=== PATIENT | male | born 1960 | race Caucasian/White ===

== ENCOUNTER → 2016-10-21 | Outpatient (CLI) | payer BC ==
[~2016-10-21] MED LIST: ALEVE220 M1 PO; ANAFRANIL50 MG PO; ARTHRO 7 PO; BAYER ASPIRIN325 M1 PO; CEFDINIR300 M2 PO; CENTRUM SILVER PO; CLOMIPRAMINE HC75 MG PO; DEPLIN-ALGAL O1 EAC1 PO; DURAFLU 325-201 EACH PO; FIBER GUMMIES1 EACH PO; FIBER625 M2 PO; FLOMAX0.4 M1 PO; FLONASE 0.05% N16 G1; KLONOPIN0.5 M3 PO; KLONOPIN0.5 MG PO; KLONOPIN1 M1 PO; MIRTAZAPINE45 M1 PO; NAPHCON-A EYE D15 M1 OU; NAPROXEN PO; PROBIOTIC1 EAC1 PO; PROBIOTIC1 EACH PO; REMERON45 M1 PO; ROXICODONE5 MG PO; VANCOMYCIN1.5 GM/251 IV; VITAMIN D2000 UNIT PO; VITAMIN D32000 UNI1 PO; [UNRECOGNIZED DRUG - CODE] IV; [UNRECOGNIZED DRUG - OTHER] OU; [UNRECOGNIZED DRUG - OTHER] PO
[2016-10-21 15:26] LABS: URINE APPEARANCE CLEAR; URINE BILIRUBIN NEG (NEG); URINE BLOOD NEG (NEG); URINE COLOR YELLOW; URINE GLUCOSE NEG (NEG); URINE KETONE NEG (NEG); URINE LEUKOCYTE ESTERASE NEG (NEG); URINE NITRATE NEG (NEG); URINE PROTEIN NEG (NEG); URINE UROBILINOGEN 0.2 MG/DL (NEG)
[2016-10-21 15:28] LABS: URINE SOURCE CLEAN CATCH
[2016-10-21 15:40] LABS: HEMATOCRIT 48.3 % (38.0-50.0); HEMOGLOBIN 15.9 gm/dL (13.0-16.0); MEAN CELL VOLUME 86.9 FL (83-96); MEAN CORPUSCULAR HEMOGLOBIN 28.6 PG (28-34); MEAN CORPUSCULAR HGB CONC 32.9 g/dL (30-36); MEAN PLATELET VOLUME 9.3 FL (6.5-11.5); RED BLOOD COUNT 5.56 X10e (3.90-5.60); RED CELL DISTRIBUTION WIDTH 13.6 % (11.0-15.5); WHITE BLOOD COUNT 8.6 X10e3 (4.0-10.5)
[2016-10-21 16:12] LABS: BLOOD UREA NITROGEN 24 mg/dL (9-23); BUN/CREATININE RATIO 21.81; CALCIUM SERUM 9.2 mg/dL (8.4-10.2); CARBON DIOXIDE 31 mmol/L (22-31); CHLORIDE 104 mmol/L (100-111); CREATININE SERUM 1.1 mg/dL (0.6-1.4); GLOM FILT RATE Estimated ABOVE60 mL/min (>60); GLUCOSE FASTING 67 mg/dL (70-110); SODIUM 141 mmol/L (135-145)
[2016-10-21 16:29] LABS: CULTURE INDICATED? NO
== END | disposition home or self-care (01) ==
LOC: CAMB 14:48
PROVIDERS: Orthopaedic Surgery
DX: Z01.812 Encounter for preprocedural laboratory examination (principal); T84.59XA Infection and inflammatory reaction due to other internal joint prosthesis, initial encounter; Z96.612 Presence of left artificial shoulder joint
CPT/HCPCS: 36415; 80048; 81003; 85027; 85652; 86140; 87070

== ENCOUNTER 2016-10-27 10:03 | Inpatient (IN) | payer BC ==
--- NOTE | ~2016-10-27 | OR ---
Unit #: [id number] #: [id number] Patient: CONSUELO MCKOY [id number] [address] [place], [place] [address] [id number] I MR#: [id number] NAME: CONSUELO MCKOY ROOM: 456 Date of Procedure: 10/27/2016 Admission Date: 10/27/2016 Surgeon: Cuauhtemoc Patiño M.D. : 1960 Attending Physician: Cuauhtemoc Patiño M.D. Primary Care Physician: Umesh Ba M.D. PROCEDURE OPERATIVE NOTE ADDENDUM ADDENDUM This addendum is to clarify the nature of the humerus fracture encountered intraoperatively during Mr. Mckoy's case. This is not considered a true surgical complication but was only listed as such to identify that the event occurred. This is a typical and incidental occurrence that happens routinely during orthopedic hardware removal, particularly humeral stem extraction. The stem which was to be removed was a fluted highly porous-coated stem of an older design which has been since altered as it contributes to intraoperative fracture during explantation. The bone was further structurally compromised due to the known infection and osteolysis around the implant. This further contributed to the fracture of the posterior rim of the humerus. This was repaired and addressed at the conclusion of the surgery while fixing the humeral osteotomy. This does not in any way alter Mr. Mckoy's expected outcome for future revision operation. Dictated by... Junie Hercules/nahun TD: 11/04/2016 15:05 JOB #: [id number] PROCEDURE OPERATIVE NOTE Page 1 of 1 X Cuauhtemoc Patiño MD X PROCEDURE OPERATIVE NOTE
--- NOTE | ~2016-10-27 | OR ---
Unit #: [id number] #: [id number] Patient: CONSUELO MCKOY [id number] [address] [place], [place] [address] [id number] I MR#: [id number] NAME: CONSUELO MCKOY ROOM: [facility] Date of Procedure: 10/27/2016 Admission Date: 10/27/2016 Surgeon: Cuauhtemoc Patiño M.D. : 1960 Attending Physician: Cuauhtemoc Patiño M.D. Primary Care Physician: Umesh Ba M.D. OPERATIVE REPORT PREOPERATIVE DIAGNOSIS Infected left total shoulder arthroplasty. POSTOPERATIVE DIAGNOSES 1. Infected left total shoulder arthroplasty. 2. Long head of the biceps tendon tear, status post prior tenodesis. 3. Intraoperative proximal humerus fracture following humeral osteotomy for stem removal. PROCEDURES PERFORMED 1. Removal of left total shoulder arthroplasty including both glenoid and humeral components. 2. Revision open biceps tenodesis. 3. Open reduction and internal fixation of intraoperative humerus fracture. 4. Placement of an antibiotic spacer. IMPLANTS 1. Synthes 1.0 mm cable x4. 2. Estrada [employer] antibiotic spacer, size 8. [employer] OPERATOR Rosey Dang APRN, [place]. ANESTHESIA General with interscalene nerve block. ESTIMATED BLOOD LOSS 150 mL. COMPLICATIONS Intraoperative fracture of the proximal humerus following humeral osteotomy for stem extraction, repaired with cerclage cables. SPECIMENS 1. Multiple cultures to microbiology including the humeral implant and canal as well as the glenohumeral joint capsule and cultures from the glenoid component and glenoid itself. 2. Multiple specimens to microbiology from the same above sources. INDICATIONS FOR PROCEDURE Mr. Mckoy is a 56-year-old gentleman with a painful left total shoulder Unit #: [id number] #: [id number] Patient: CONSUELO MCKOY arthroplasty. Diagnostic imaging workup for loosening and infection was negative. However, he continued to have a painful shoulder. He ultimately was referred to our office for further evaluation. Workup with laboratory studies was normal as was a three-phase bone scan. However, shoulder aspiration yielded cloudy fluid, which ultimately grew out Propionibacterium acnes. We discussed the nature of occult or indolent shoulder infections and recommended component removal. He voiced agreement and understanding and elected to proceed. We discussed the risks of explanting these components as well as the plan for future reimplantation including risks of persistent infection, particularly with this organism. DESCRIPTION OF PROCEDURE The patient was identified in the preoperative holding area. The operative site was marked. A regional anesthetic block was performed. Preoperative antibiotics were held pending intraoperative culture, though the patient had been on antibiotics recently for other illness. The patient was brought to the operating room and placed supine on the operating table. A general anesthetic was induced. The patient was positioned in the beach-chair position. The left upper extremity was prepped and draped in sterile fashion. The previous incision was identified and marked out over the skin. The incision was reopened and extended this slightly proximally and distally. Dissection was carried down to the subcutaneous tissues to the deltopectoral interval. There was no visible cephalic vein. The plane between the deltoid and pectoralis was able to be identified and the proximal extent of the wound. We were then able to dissect through this along the [place] soft tissue planes as there was surprisingly minimal scarring in the interval. The pectoralis, however, was firmly scarred to the underlying conjoined tendon. This was dissected free. The deltoid was mobilized and was significantly scarred and adhesed down to the humerus itself. The subscapularis was dissected free from the underlying conjoined tendon as well. The subscapularis was intact. The biceps tendon sheath was then opened up along the bicipital groove and up through the rotator interval tissue. The subscapularis was taken down directly off bone. The previous biceps tenodesis was identified. The biceps torn or become loose from its point of tenodesis previously. This was clamped with an Allis clamp. It was noted to becoming loose from its previous tenodesis site. The biceps was tagged with a running locking #2 FiberWire for later revision tenodesis. The subscapularis was taken down. It should be noted, prior to formally opened in the glenohumeral joint, a repeat aspiration was performed directly through the subscap and rotator interval tissues. This yielded approximately 3 mL of cloudy fluid, which was sent for cell count and culture. We then continued releasing soft tissue anteriorly and dislocated the humerus. There was significant amount of membrane formation around the humerus. The humeral head was removed as well as the neck adaptor. There was purulent appearing type debris in the trunnion of the stem. There was also some bone loss around the periphery of the stem. The stem itself however was well fixed. Attention was then turned to stem removal. The extractor device was attached and several attempts made to backslap the stem, which were unsuccessful. We then used a combination of osteotomes and burs to free around the proximal lateral shoulder of the implant. Flexible osteotomes Unit #: [id number] #: [id number] Patient: CONSUELO MCKOY were passed down the shaft of the humerus as well. We then again attempted to extract the stem unsuccessfully. Another attempt was then made to free the stem using again flexible osteotomes and a bur proximally. Despite this, the stem remained well fixed. We therefore proceeded to humeral osteotomy, which was performed along the lateral aspect of the bicipital groove. This permitted the saw blade to access along the posterior or lateral shoulder of the implant and then down the lateral aspect of the stem. Once we performed the osteotomy, the stem then extracted freely without need for creation of a formal window. However, once we had the stem extracted with rotation of the arm, the proximal humerus rim fractured. This essentially fractured off the greater tuberosity around the posterior cortex. This all was one large fragment. The osteotomy was then stabilized with 2 cerclage cables. A wire passer was passed carefully around the humerus, taking care to stay directly on bone to avoid any incorporation of soft tissue between the cable and the humerus. The inferior two cables were passed and then provisionally tensioned and secured, but not crimped. Attention was then turned to fixation of the intraoperative fracture of the humerus. This was reduced with a pointed tenaculum clamp. Two K-wires were placed from anterior to posterior to stabilize the fragment. We then passed 2 more cerclage cables around the proximal humerus for fixation of the fractured fragment. A small broach was then placed in the humeral canal, protected this with a head protector as well as attention was turned to the glenoid. The humerus was subluxed posteriorly and the glenoid inspected. The glenoid was noted to actually be loose. With even gentle digital pressure on the inferior and superior aspects of the glenoid, this was freely rocking back and forth. There was widening around the glenoid rim to the degree that an additional retractor was actually placed on the glenoid neck, but actually posterior to the glenoid implant itself. Once we identified the bony rim surrounding the implant, retractors were placed on the true anterior glenoid neck. The glenoid component was dissected free of essentially fibrous attachments. Soft tissue was taken from the backside of the implant as well as what had been taken from the glenohumeral joint capsule for specimen. This was sent to microbiology and pathology. The glenoid itself was then thoroughly debrided of any infectious appearing debris and soft tissue. It should be noted that the humeral canal was curetted in a similar fashion. The canal itself did not have any significant membrane formation and did not appear to be involved in the infectious process. The wound was irrigated with Betadine solution followed by a chlorhexidine wash and pulsatile lavage. Single K-wire was removed for temporizing fixation of the greater tuberosity. This was somewhat obstructing the canal. The broach, which was in, was removed and the canal sized to a size 8. Therefore, a size 8 cement spacer was created. Once this was secured, this was placed in the canal and our cables were then finally tensioned, crimped and cut. Another batch of cement was then mixed. A small rim of cement was placed around the undersurface of the humeral head. The stem was then placed back into the canal just as the cement was being cured to facilitate easy stem removal in the future. The stem itself was not cemented in the canal. The humerus was then reduced and a final irrigation performed. A subdeltoid drain was placed. The wound was then closed in a layered fashion with 0 PDS, 2-0 PDS, and Monocryl. Steri-Strips and sterile dressings were applied. DISPOSITION Unit #: [id number] #: [id number] Patient: CONSUELO MCKOY Stable to the recovery room. Dictated by... Junie Hercules/tian TD: 10/30/2016 03:46 JOB #: [id number] OPERATIVE REPORT Page 1 of 1 X Cuauhtemoc Patiño MD PROCEDURE OPERATIVE NOTE
--- NOTE | ~2016-10-27 | XA166 ---
[facility] A Service of [facility] RADIOLOGY TEXT RESULTS PATIENT: CONSUELO MCKOY LOCATION: [facility] 456-01 : [birth year] UNIT #: [id number] AGE: [address]: Cuauhtemoc Patiño MD SEX: M ORDER DR: [id number] [facility] [address] [place], [place] [address] [id number] I MR#: [id number] Acc #: [id number] NAME: CONSUELO MCKOY : 1960 SEX: M STUDY DATE/TIME: 10/29/2016 12:12 UNIT: [facility] ROOM: [facility] STUDY DESCRIPTION: XA PICC Line Placement WO Port Attending Physician: Cuauhtemoc Patiño M.D. Ordering Physician: Deandre Camara M.D. Primary Care Physician: Umesh Ba M.D. MEDICAL IMAGING REPORT This report is preliminary unless electronic signature is present EXAM Right-sided PICC line placement without port. DATE OF EXAM 10/29/2016 INDICATION Need for IV access in a patient status post left shoulder arthroplasty revision. PRE-PROCEDURE The procedure was explained to the patient and/or patient branch sales and service representative including risks, benefits, potential complications and potential for alternative forms of treatment. Informed consent was obtained, and prior to initiating the procedure a formal timeout procedure was performed. PROCEDURE Using full standard sterile barrier technique, including caps, gowns, gloves, masks, as well as sterile skin preparation and standard sterile draping, the right-side arm was prepped and draped in the usual fashion, and real-time sterile ultrasound guidance was used to localize an arm vein and to confirm vessel patency. A hard copy ultrasound image was recorded. After local anesthesia with 1% Xylocaine, the vein was punctured using real-time sterile ultrasound guidance, and an 0.018 guidewire was advanced into the superior vena cava, using fluoroscopic guidance. A 4-Namibian single-lumen PICC was then measured and deployed with the tip positioned in the superior vena cava. The position of the line was documented with a radiographic image. The line was secured in place with an adhesive dressing and an antibiotic patch was applied. Total fluoro time was 0.1 minutes. AK was 1 mGy. IMPRESSION [facility]. [facility] A Service of [facility] RADIOLOGY TEXT RESULTS PATIENT: CONSUELO MCKOY LOCATION: [facility] 456-01 : [birth year] UNIT #: [id number] AGE: [address]: Cuauhtemoc Patiño MD SEX: M ORDER DR: Successful placement of a 4-Namibian single lumen PowerPICC via the right arm under ultrasound and fluoroscopic guidance. The tip of the PICC is in good position in the superior vena cava. A single fluoroscopic spot image was obtained. Dictated by... Latosha Arora M.D. THIS IS AN ELECTRONICALLY VERIFIED REPORT Latosha Arora M.D. at 11/01/2016 4:46 PM RUPESH/amber TD: 10/29/2016 22:42 JOB #: [id number] MEDICAL IMAGING REPORT Page 1 of 1 COPY
--- NOTE | ~2016-10-27 | CR63 ---
[facility] A Service of [facility] & [facility] RADIOLOGY TEXT RESULTS PATIENT: CONSUELO MCKOY LOCATION: [facility] : 62 UNIT #: [id number] AGE: [address]: Cuauhtemoc Patiño MD SEX: M ORDER DR: [id number] [facility] [address] [place], [place] [address] [id number] MR#: [id number] Acc #: [id number] NAME: CONSUELO MCKOY : 1960 SEX: M STUDY DATE/TIME: 10/21/2016 16:41 UNIT: [facility] ROOM: STUDY DESCRIPTION: CR Chest 2 View Attending Physician: Cuauhtemoc Patiño M.D. Ordering Physician: Cuauhtemoc Patiño M.D. Primary Care Physician: Umesh Ba M.D. MEDICAL IMAGING REPORT This report is preliminary unless electronic signature is present EXAM PA and lateral chest HISTORY Preop left shoulder replacement. Shoulder infected. Symptoms beginning April 2013. FINDINGS PA and lateral views are obtained. The cardiovascular configuration is normal and the lungs are clear. CONCLUSION No active disease. Dictated by... Molina Chen M.D. THIS IS AN ELECTRONICALLY VERIFIED REPORT Molina Chen M.D. at 10/25/2016 5:10 PM Dick TD: 10/22/2016 07:41 JOB #: [id number] MEDICAL IMAGING REPORT Page 1 of 1 COPY
--- NOTE | ~2016-10-27 | CO ---
Unit #: [id number] #: [id number] Patient: CONSUELO MCKOY [id number] [address] [place], [place] [address] [id number] MR#: [id number] NAME: CONSUELO MCKOY ROOM: 456 Age: 56 Sex: M Admission Date: 10/27/2016 : 1960 Attending Physician: Cuauhtemoc Patiño M.D. Primary Care Physician: Umesh Ba M.D. Consultation Date: 10/28/2016 CONSULTATION REPORT REASON FOR CONSULTATION Infected left shoulder. HISTORY OF PRESENT ILLNESS This is a very pleasant 56-year-old white male with a history of osteoarthrosis, status post left shoulder arthroplasty back in 04/2013 who had chronic pain in left shoulder for several months and has been seeing a physical therapy without any improvement, to the best of his knowledge no arthrocentesis was performed until he saw Dr. Patiño on 09/13, joint aspiration at that time grew Propionibacterium acnes. The patient was brought in yesterday for arthroplasty resection, which he underwent successfully followed by spacer placement, all the OR cultures are pending. He was started on penicillin and vancomycin and ID was consulted for further evaluation. The patient is currently stable other than postoperative pain he has no other symptoms. He told me that he continued to have low-grade pain in that shoulder since arthroplasty. He never had any swollen, painful, red shoulder with fever and chills. He is tolerating current antibiotics well and does not have any other symptoms at this time, especially there is no fever or chills, etc. PAST MEDICAL HISTORY Anxiety, depression, osteoarthrosis, and overactive bladder. PAST SURGICAL HISTORY Left shoulder replacement. CURRENT MEDICATIONS Vancomycin, enalapril, Remeron, Klonopin, Senokot, morphine, oxycodone, milk of magnesia, bisacodyl, Tylenol, Phenergan, penicillin, Zofran, and Flomax. ALLERGIES None. PERSONAL HISTORY He denies any alcohol, drug, or tobacco abuse. FAMILY HISTORY Positive for osteoarthrosis. SYSTEMIC REVIEW Postoperative pain in the left shoulder. No fever or chills. There is no cough, sputum production, abdominal pain, nausea, vomiting, diarrhea, dysuria, frequency, urgency, hematuria, etc. Unit #: [id number] #: [id number] Patient: CONSUELO MCKOY PHYSICAL EXAMINATION GENERAL: Reveals a young white male, who is awake and alert, in no acute distress. He is fully conscious, oriented to time, place, and person. VITAL SIGNS: Temperature 97.6, no fever was documented during this admission; heart rate is 90; respirations 20; blood pressure 130/80. HEENT: Unremarkable. NECK: Supple. There is no JVD or edema. LUNGS: Clear. HEART: Sounds normal. ABDOMEN: Soft and nontender. NEUROLOGIC: Nonfocal. Left shoulder is in dressing. Wound was not examined. DIAGNOSTIC STUDIES LABORATORY RESULTS: BMP is unremarkable. White count is 10.6, hemoglobin 13.2, platelets 136, neutrophils 76, lymphocytes 13. Cell count in the synovial fluid shows 6195 WBCs, 77% neutrophils. MRSA screen was negative. Urinalysis negative. CRP less than 0.5. Cultures of the shoulder aspirated on 09/23 have grown Propionibacterium acnes from the broth. OR cultures from yesterday, all negative so far and gram stain is negative as well. IMAGING STUDIES: Left shoulder x-ray shows postoperative changes. Revision of left shoulder arthroplasty. Chest x-ray is negative for acute disease. 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 This infection is usually indolent and joint removal is usually indicated. RECOMMENDATIONS At this time, I will agree with penicillin, however, I will increase the dose to 18 million units over 24 hours. We will also agree with vancomycin until other organisms are excluded. I will recommend at least 6 to 8 weeks of IV antibiotics therapy via PICC line and home health. Side effects of antibiotics as well as of the PICC line were discussed with the patient in detail. Other options were discussed. Thank you Dr. Patiño for asking us to see Mr. Mckoy. We will follow along with you and give final recommendations on the day of discharge. Once cultures are finalized, I will ask Microbiology to keep cultures for at least 5 days. Dictated by... Junie Gary/tian TD: 10/29/2016 01:48 JOB #: [id number] Unit #: [id number] #: [id number] Patient: CONSUELO MCKOY CONSULTATION REPORT Page 1 of 1 X Deandre Camara MD CONSULTATION REPORT
--- NOTE | ~2016-10-27 | CR229 ---
[facility] A Service of [facility] & [facility] RADIOLOGY TEXT RESULTS PATIENT: CONSUELO MCKOY LOCATION: [facility] 456-01 : [birth year] UNIT #: [id number] AGE: [address]: Cuauhtemoc Patiño MD SEX: M ORDER DR: [id number] [facility] [address] [place], [place] [address] [id number] I MR#: [id number] Acc #: [id number] NAME: CONSUELO MCKOY : 1960 SEX: M STUDY DATE/TIME: 10/27/2016 19:27 UNIT: [facility] ROOM: [facility] STUDY DESCRIPTION: CR Shoulder Min 2 View Lt Attending Physician: Cuauhtemoc Patiño M.D. Ordering Physician: Cuauhtemoc Patiño M.D. Primary Care Physician: Umesh Ba M.D. MEDICAL IMAGING REPORT This report is preliminary unless electronic signature is present EXAM Left shoulder 2 views, 10/27/2016 HISTORY SUPPLIED Postop left shoulder. FINDINGS 2 views are submitted. There are postsurgical changes in the left shoulder joint with cerclage wires. The patient apparently has had removal of a prosthesis and there is a drain laterally. CONCLUSION Postop changes, presumed revision of the left shoulder arthroplasty. Dictated by... Molina Chen M.D. THIS IS AN ELECTRONICALLY VERIFIED REPORT Molina Chen M.D. at 10/28/2016 10:35 AM AUGUSTIN/jagjit TD: 10/28/2016 05:12 JOB #: [id number] MEDICAL IMAGING REPORT Page 1 of 1 COPY
--- NOTE | ~2016-10-27 | DS ---
Unit #: [id number] #: [id number] Patient: CONSUELO MCKOY [id number] [address] [place], [place] [address] [id number] MR#: [id number] NAME: CONSUELO MCKOY ROOM: 456 Age: 56 Sex: M Admission Date: 10/27/2016 : 1960 Discharge Date: 10/30/2016 Attending Physician: Cuauhtemoc Patiño M.D. Primary Care Physician: Umesh Ba M.D. DISCHARGE SUMMARY ADMISSION DIAGNOSIS Infected left total shoulder arthroplasty. DISCHARGE DIAGNOSIS Infected left total shoulder arthroplasty. SECONDARY DIAGNOSES 1. Benign prostatic hypertrophy. 2. Depressive disorder. 3. Anxiety disorder. 4. Vitamin D deficiency. PROCEDURE DURING THIS HOSPITALIZATION Explantation of infected left total shoulder arthroplasty and placement of antibiotic impregnated spacer. CONSULTANTS Dr. Camara and Dr. Barraza with Infectious Disease. Plan for discharge on both IV vancomycin and penicillin. BRIEF HISTORY Mr. Mckoy is a 56-year-old gentleman with a history of a painful left total shoulder arthroplasty for the past several years. An office aspiration yielded appropriate propionibacterium acnes. He now presents for explantation of his components and placement of spacer. HOSPITAL COURSE The patient was taken to the operating room on the day of admission, on 10/27/2016. The patient was taken the operating room on the day of admission on 10/27/2016. For full details, please see dictated operative note. He briefly underwent explantation of his components from the left total shoulder arthroplasty. The antibiotic spacer was placed. He tolerated surgery well. He is admitted to the orthopedic surgery floor postoperatively. He has been continued on IV vancomycin and penicillin G for coverage of P acnes. Infectious Disease was consulted and continued with these recommendations. The patient's postoperative course has been unremarkable. He has been up and ambulatory in his room. Postoperative wound care has been uncomplicated. No drainage or erythema at the surgical site. He has been participating with physical therapy. He is tolerating a regular diet; however, is not yet had a bowel movement. At the current time, his wound is clean and dry. His hemoglobin has been Unit #: [id number] #: [id number] Patient: MCKOY,CONSUELO stable at 10.4. Antibiotics at disposition has been finalized and he is medically stable for discharge home. Intraoperative cultures remain negative to date. DISCHARGE INSTRUCTIONS The patient should be nonweightbearing on the affected extremity. He is to be in a sling. He may be out of this 3 times daily for range of motion exercises as directed. DISCHARGE MEDICATIONS Flomax 0.4 mg p.o. daily, Flonase nasal spray daily, clomipramine 100 mg p.o. q.h.s., mirtazapine 45 mg p.o. q.h.s., probiotic capsule daily, Klonopin 0.5 mg p.o. b.i.d., multivitamin daily, vitamin D 2000 units p.o. daily, vancomycin 1500 mg IV q.12 hours x6 weeks, penicillin G three million units IV q.4 x6 weeks. FOLLOWUP He will follow up in 2 weeks' time as scheduled for routine postoperative visit. Dictated by... Junie Hercules/tian TD: 10/30/2016 22:21 JOB #: [id number] DISCHARGE SUMMARY Page 1 of 1 X Cuauhtemoc Patiño MD DISCHARGE SUMMARY
[~2016-10-27 10:03] MED LIST changes: -ALEVE220 M1 PO; -CLOMIPRAMINE HC75 MG PO; -FIBER625 M2 PO; -KLONOPIN0.5 M3 PO; -KLONOPIN1 M1 PO; -PROBIOTIC1 EACH PO; -REMERON45 M1 PO; -ROXICODONE5 MG PO; -VANCOMYCIN1.5 GM/251 IV; -VITAMIN D32000 UNI1 PO; -[UNRECOGNIZED DRUG - CODE] IV; -[UNRECOGNIZED DRUG - OTHER] OU; -[UNRECOGNIZED DRUG - OTHER] PO
[2016-10-27 19:01] LABS: BF TOTAL NUCLEATED CELL COUNT 6195 CMM (0-100); BODY FLUID APPEARANCE BLOODY; BODY FLUID RBC 39914 CMM; BODY FLUID SOURCE SYNOVIAL
[2016-10-28 12:03] LABS: BASOPHIL# 0.1 X10e3 (0-0.3); BASOPHIL% 0.8 % (0-2.5); EOSINOPHIL% 0.4 % (0.0-7.0); HEMATOCRIT 40.8 % (38.0-50.0); HEMOGLOBIN 13.2 gm/dL (13.0-16.0); LYMPHOCYTE# 1.4 X10e3 (1.0-3.5); LYMPHOCYTE% 13.7 % (17.0-45.0); MEAN CELL VOLUME 87.8 FL (83-96); MEAN CORPUSCULAR HEMOGLOBIN 28.5 PG (28-34); MEAN CORPUSCULAR HGB CONC 32.4 g/dL (30-36); MEAN PLATELET VOLUME 9.5 FL (6.5-11.5); MONOCYTE# 0.9 X10e3 (0-1.0); MONOCYTE% 8.7 % (3.0-12.0); NEUTROPHIL% 76.4 % (40-75); PLATELET COUNT 136 X10e3 (140-420); RED BLOOD COUNT 4.64 X10e (3.90-5.60); RED CELL DISTRIBUTION WIDTH 13.6 % (11.0-15.5); WHITE BLOOD COUNT 10.4 X10e3 (4.0-10.5)
[2016-10-28 12:05] LABS: DIFF IND NO
[2016-10-28 12:31] LABS: CALCIUM SERUM 8.7 mg/dL (8.4-10.2); GLOM FILT RATE Estimated 84.4 mL/min (>60); POTASSIUM 3.8 mmol/L (3.5-5.1)
[2016-10-29 01:25] LABS: BASOPHIL% 0.3 % (0-2.5); EOSINOPHIL# 0.1 X10e3 (0-0.7); EOSINOPHIL% 0.7 % (0.0-7.0); HEMATOCRIT 39.7 % (38.0-50.0); HEMOGLOBIN 12.8 gm/dL (13.0-16.0); LYMPHOCYTE# 1.4 X10e3 (1.0-3.5); LYMPHOCYTE% 13.1 % (17.0-45.0); MEAN CELL VOLUME 87.8 FL (83-96); MEAN CORPUSCULAR HEMOGLOBIN 28.2 PG (28-34); MEAN CORPUSCULAR HGB CONC 32.2 g/dL (30-36); MEAN PLATELET VOLUME 9.2 FL (6.5-11.5); MONOCYTE# 0.9 X10e3 (0-1.0); NEUTROPHIL% 76.9 % (40-75); PLATELET COUNT 128 X10e3 (140-420); RED BLOOD COUNT 4.52 X10e (3.90-5.60); RED CELL DISTRIBUTION WIDTH 13.6 % (11.0-15.5); WHITE BLOOD COUNT 10.4 X10e3 (4.0-10.5)
[2016-10-29 01:26] LABS: DIFF IND NO
[2016-10-30 04:54] LABS: BUN/CREATININE RATIO 13.33; CALCIUM SERUM 8.4 mg/dL (8.4-10.2); CREATININE SERUM 0.9 mg/dL (0.6-1.4); GLOM FILT RATE Estimated 95.8 mL/min (>60); POTASSIUM 3.9 mmol/L (3.5-5.1)
[2016-10-30] MEDS ORDERED: VANCOMYCIN1.5 GM/251 IV (14:01)
[2016-10-30] MEDS ORDERED: ROXICODONE5 MG PO (14:01)
[2016-10-30] MEDS ORDERED: [UNRECOGNIZED DRUG - CODE] IV (14:02)
[2017-03-10] MEDS ORDERED: KLONOPIN0.5 M3 PO (11:28)
[2017-03-10] MEDS ORDERED: KLONOPIN1 M1 PO (11:28)
[2017-03-10] MEDS ORDERED: REMERON45 M1 PO (11:29)
[2017-03-10] MEDS ORDERED: CLOMIPRAMINE HC75 MG PO (11:29)
[2017-03-10] MEDS ORDERED: FLOMAX0.4 M1 PO (11:30)
[2017-03-10] MEDS ORDERED: PROBIOTIC1 EACH PO (11:31)
[2017-03-10] MEDS ORDERED: [UNRECOGNIZED DRUG - OTHER] PO (11:31)
[2017-03-10] MEDS ORDERED: VITAMIN D32000 UNI1 PO (11:32)
[2017-03-10] MEDS ORDERED: ALEVE220 M1 PO (11:32)
[2017-03-10] MEDS ORDERED: CENTRUM SILVER PO (11:32)
[2017-03-10] MEDS ORDERED: FIBER625 M2 PO (11:32)
[2017-03-10] MEDS ORDERED: [UNRECOGNIZED DRUG - OTHER] OU (11:33)
== END 2016-10-30 15:48 | disposition home health service (06) | DRG 494 ==
LOC: CSUR 10:03 → CPACUOF 19:00 → C4B 10-28 00:01
PROVIDERS: Orthopaedic Surgery
PROC: 0RPK0JZ Removal of Synthetic Substitute from Left Shoulder Joint, Open Approach (ICD-10-PCS; principal; 2016-10-28)
PROC: 0PSD04Z Reposition Left Humeral Head with Internal Fixation Device, Open Approach (ICD-10-PCS; 2016-10-28)
PROC: 0LS40ZZ Reposition Left Upper Arm Tendon, Open Approach (ICD-10-PCS; 2016-10-28)
PROC: 0RHK08Z Insertion of Spacer into Left Shoulder Joint, Open Approach (ICD-10-PCS; 2016-10-28)
PROC: 02HV33Z Insertion of Infusion Device into Superior Vena Cava, Percutaneous Approach (ICD-10-PCS; 2016-10-29)
PROC: B518YZA Fluoroscopy of Superior Vena Cava using Other Contrast, Guidance (ICD-10-PCS; 2016-10-29)
PROC: B548ZZA Ultrasonography of Superior Vena Cava, Guidance (ICD-10-PCS; 2016-10-29)
DX: T84.59XA Infection and inflammatory reaction due to other internal joint prosthesis, initial encounter (principal); S42.202A Unspecified fracture of upper end of left humerus, initial encounter for closed fracture; F32.9 Major depressive disorder, single episode, unspecified; Z96.612 Presence of left artificial shoulder joint; Y79.2 Prosthetic and other implants, materials and accessory orthopedic devices associated with adverse incidents; F41.9 Anxiety disorder, unspecified; N32.81 Overactive bladder; N40.0 Benign prostatic hyperplasia without lower urinary tract symptoms
CPT/HCPCS: 71020; 73030; 76937; 77001; 80048; 80202; 82947; 85025; 87070; 87075; 87205; 88300; 88305; 88307; 88311; 88313; 88323; 88341; 88342; 88368; 88369; 89051; 97110; 97116; 97162; 97530; C1751; C1776; J0131; J0330; J1642; J2250; J2270; J2405; J2540; J2710; J2795; J3010; J3370

== ENCOUNTER → 2016-11-17 | Outpatient (CLI) | payer BC ==
[~2016-11-17] MED LIST changes: +ALEVE220 M1 PO; +CLOMIPRAMINE HC75 MG PO; +FIBER625 M2 PO; +KLONOPIN0.5 M3 PO; +KLONOPIN1 M1 PO; +PROBIOTIC1 EACH PO; +REMERON45 M1 PO; +ROXICODONE5 MG PO; +VANCOMYCIN1.5 GM/251 IV; +VITAMIN D32000 UNI1 PO; +[UNRECOGNIZED DRUG - CODE] IV; +[UNRECOGNIZED DRUG - OTHER] OU; +[UNRECOGNIZED DRUG - OTHER] PO
--- NOTE | ~2016-11-17 | XA166 ---
[facility] A Service of [facility] RADIOLOGY TEXT RESULTS PATIENT: CONSUELO MCKOY LOCATION: CIVR : 62 UNIT #: [id number] AGE: [address]: Deandre Camara MD SEX: M ORDER DR: [id number] [facility] [address] [place], [place] [address] [id number] O MR#: [id number] Acc #: [id number] NAME: CONSUELO MCKOY : 1960 SEX: M STUDY DATE/TIME: 11/17/2016 11:14 UNIT: [facility] ROOM: STUDY DESCRIPTION: XA PICC Line Placement WO Port Attending Physician: Deandre Camara M.D. Referring Physician: Deandre Camara M.D. Ordering Physician: Deandre Camara M.D. Primary Care Physician: Umesh Ba M.D. MEDICAL IMAGING REPORT This report is preliminary unless electronic signature is present EXAM Right arm PICC line HISTORY IV access needed PRE-PROCEDURE The procedure was explained to the patient and/or patient sales representative advertising including risks, benefits, potential complications and potential for alternative forms of treatment. Informed consent was obtained, and prior to initiating the procedure a formal timeout procedure was performed. PROCEDURE Using full standard sterile barrier technique, including caps, gowns, gloves, masks, as well as sterile skin preparation and standard sterile draping, the right arm was prepped and draped in the usual fashion, and real-time sterile ultrasound guidance was used to localize an arm vein and to confirm vessel patency. A hard copy ultrasound image was recorded. After local anesthesia with 1% Xylocaine, the vein was punctured using real-time sterile ultrasound guidance, and an 0.018 guidewire was advanced into the superior vena cava, using fluoroscopic guidance. A 4-Urdu single-lumen PICC was then measured and deployed with the tip positioned in the superior vena cava. The position of the line was documented with a radiographic image. The line was secured in place with an adhesive dressing and an antibiotic patch was applied. Total fluoro time was 1.9 minutes. A single fluoroscopic spot image was obtained. IMPRESSION 1. Successful placement of a 4-Urdu single-lumen PowerPICC via the right arm under ultrasound and fluoroscopic guidance. The tip of the PICC is in good position in the superior vena cava. 2. A single fluoroscopic spot image was obtained. [facility] A Service of [facility] RADIOLOGY TEXT RESULTS PATIENT: CONSUELO MCKOY LOCATION: [facility] : 61 UNIT #: [id number] AGE: [address]: Deandre Camara MD SEX: M ORDER DR: Dictated by... Beau Bender M.D. THIS IS AN ELECTRONICALLY VERIFIED REPORT Beau Bender M.D. at 11/21/2016 11:22 AM TEV/to TD: 11/17/2016 18:46 JOB #: [id number] MEDICAL IMAGING REPORT Page 1 of 1 COPY
== END | disposition home or self-care (01) ==
LOC: CIVR 10:54
PROC: 02HV33Z Insertion of Infusion Device into Superior Vena Cava, Percutaneous Approach (ICD-10-PCS; principal; 2016-11-17)
DX: Z45.2 Encounter for adjustment and management of vascular access device (principal); T84.84XA Pain due to internal orthopedic prosthetic devices, implants and grafts, initial encounter; Z96.612 Presence of left artificial shoulder joint
CPT/HCPCS: 76937; 77001; C1751; J1642

== ENCOUNTER → 2016-11-30 | Outpatient (CLI) | payer BC ==
--- NOTE | ~2016-11-30 | XA166 ---
[facility] A Service of [facility] RADIOLOGY TEXT RESULTS PATIENT: CONSUELO MCKOY LOCATION: CIVR : 62 UNIT #: [id number] AGE: [address]: Deandre Camara MD SEX: M ORDER DR: [id number] [facility]. [place], [place] [address] [id number] O MR#: [id number] Acc #: [id number] NAME: CONSUELO MCKOY : 1960 SEX: M STUDY DATE/TIME: 11/30/2016 16:24 UNIT: [facility] ROOM: STUDY DESCRIPTION: XA PICC Line Placement WO Port Attending Physician: Deandre Camara M.D. Referring Physician: Fransisco Frazier M.D. Ordering Physician: Deandre Camara M.D. Primary Care Physician: Umesh Ba M.D. MEDICAL IMAGING REPORT This report is preliminary unless electronic signature is present EXAM PICC placement with ultrasound and fluoroscopic guidance HISTORY Venous access needed TECHNIQUE The procedure was explained to the patient including risks, benefits and complications. Informed consent was obtained and a formal time-out procedure was utilized. Full barrier sterile technique was employed via standard protocol. Using full barrier sterile technique and following local anesthesia with 1% Xylocaine, a brachial vein was punctured above the elbow on the right with ultrasound guidance. Ultrasound was used to confirm vessel patency which was confirmed and permanent ultrasound images were recorded. An 0.018 guidewire was passed into the superior vena cava under fluoroscopic guidance. A dilator sheath was placed over the wire. A 4-Armenian single lumen PICC was measured to 39 cm, cut and deployed with the tip positioned at the lower superior vena cava. The line was secured in placed with an antibiotic patch and adhesive dressing. Total fluoroscopy time 0.3 minutes with one spot film and a total dose of 2 mGy. IMPRESSION Successful placement of a 4-Armenian single lumen PICC via the right brachial vein above the elbow with ultrasound and fluoroscopic guidance. Dictated by... [facility] A Service of [facility] RADIOLOGY TEXT RESULTS PATIENT: CONSUELO MCKOY [facility] #: [id number] : [birth year] UNIT #: [id number] AGE: [address]: Deandre Camara MD SEX: M ORDER DR: Fransisco Frazier M.D. THIS IS AN ELECTRONICALLY VERIFIED REPORT Fransisco Frazier M.D. at 12/01/2016 4:44 PM Madhu TD: 12/01/2016 08:56 JOB #: [id number] MEDICAL IMAGING REPORT Page 1 of 1 COPY
--- NOTE | ~2016-11-30 | CO ---
Unit #: [id number] #: [id number] Patient: CONSUELO MCKOY [id number] [address] [place], [place] [address] [id number] O MR#: [id number] NAME: CONSUELO MCKOY ROOM: Age: 56 Sex: M Admission Date: 11/30/2016 : 1960 Attending Physician: Deandre Camara M.D. Primary Care Physician: Umesh Ba M.D. Consultation Date: 11/30/2016 CONSULTATION REPORT HISTORY OF PRESENT ILLNESS Mr. Mckoy is known to our service from 10/27/2016 through 10/30/2016 when he was admitted for infected left shoulder arthroplasty. Prior to removal, his cultures have grown Propionibacterium. After surgery, all cultures have been negative to date. He was discharged on vancomycin and high-dose intravenous penicillin to be continued until 12/10/2016; however, according to home health nursing, he has been somewhat noncompliant in sense that they never find him. When they go to his home to draw his labs, his vancomycin scheduled has been erratic. He is supposed to be taking 1250 mg daily, but this time it has been very different as recommended. They also have not found him several times when they went into change his penicillin infusion pump. His labs are also somewhat increased. His sedimentation rate is about 90 and CRP is 15. His creatinine and white count were normal. He is here today to change his PICC line, which is his 3rd PICC line. According to him, it take came out and was start leaking. Two days ago, he was at [facility] trying to get them fixed the PICC line. Two to three weeks ago, he was at [facility] for change of PICC line, so I am not sure what is going on, but after discussion with the infusion pharmacy, he still need at least 10 more days of IV antibiotics, so we decided to replace his PICC line. At the same time, we did discuss with the patient the compliance issues and the importance of taking antibiotics on time and not abusing the PICC line. He is doing well, otherwise, his incision is healed. There is no drainage or pain. His range of motion is improving. He told me that he has seen Dr. Patiño 2 weeks ago and he was happy with the progress. PHYSICAL EXAMINATION VITAL SIGNS: Stable. GENERAL: He was wide awake and alert. LUNGS: Clear. HEART: Sounds normal. ABDOMEN: Soft and nontender. EXTREMITIES: His PICC line is almost out as there was some clear drainage around the PICC line. His shoulder incision is healed and range of motion is normal. There is no swelling. Range of motion is somewhat restricted, but painless. DIAGNOSTIC STUDIES LABORATORY RESULTS: Reviewed with the infusion pharmacy as discussed earlier. 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 Prosthesis has been removed. OR cultures have been negative. Unit #: [id number] #: [id number] Patient: CONSUELO MCKOY PLAN Plan is to reinsert his PICC line. Continue vancomycin and penicillin until 12/10/2016, after which, we will reassess and decide what to do the next. The patient was counseled about taking care of the PICC line efficiently and not abusing it as well as taking his antibiotics on time and be available for home health to draw his blood for testing and vancomycin levels. Dictated by... Junie Gary/tian TD: 12/01/2016 02:37 JOB #: [id number] CC: Cuauhtemoc Patiño M.D. CONSULTATION REPORT Page 1 of 1 X Deandre Camara MD X CONSULTATION REPORT
== END | disposition home or self-care (01) ==
LOC: CIVR 14:02
DX: Z45.2 Encounter for adjustment and management of vascular access device (principal); T84.59XA Infection and inflammatory reaction due to other internal joint prosthesis, initial encounter; M00.812 Arthritis due to other bacteria, left shoulder; B96.89 Other specified bacterial agents as the cause of diseases classified elsewhere; Y79.2 Prosthetic and other implants, materials and accessory orthopedic devices associated with adverse incidents; Z89.232 Acquired absence of left shoulder
CPT/HCPCS: 76937; 77001; C1751; J1642

== ENCOUNTER → 2017-03-10 | Outpatient (CLI) | payer BC ==
--- NOTE | ~2017-03-10 | CT127 ---
[facility] A Service of [facility] RADIOLOGY TEXT RESULTS PATIENT: CONSUELO MCKOY LOCATION: [facility] : 62 UNIT #: [id number] AGE: [address]: Cuauhtemoc Patiño MD SEX: M ORDER DR: [id number] [facility] [address] [place], [place] [address] [id number] O MR#: [id number] Acc #: [id number] NAME: CONSUELO MCKOY : 1960 SEX: M STUDY DATE/TIME: 03/10/2017 10:00 UNIT: [facility] ROOM: STUDY DESCRIPTION: CT Upper Ext Lt Wo Cont Attending Physician: Cuauhtemoc Patiño M.D. Ordering Physician: Cuauhtemoc Patiño M.D. Primary Care Physician: Umesh Ba M.D. MEDICAL IMAGING REPORT This report is preliminary unless electronic signature is present EXAM CT left shoulder. HISTORY 56-year-old male preop for left shoulder prosthesis replacement. Some pain since October 2016. Preoperative evaluation for [employer] shoulder placement. Patient with a shoulder antibiotic spacer. COMPARISON Left shoulder films, 03/04/2017. TECHNIQUE Thin section axial images form through the left shoulder with multiplanar reconstructions. This CT exam was performed with one or more of the following radiation dose reduction techniques: automatic exposure control, adjustment of mA and/or kV according to patient size, and iterative reconstruction. FINDINGS Patient is status post explantation of an apparent left shoulder arthroplasty with placement of a methylmethacrylate antibiotic spacer. Four cerclage wires are noted along the proximal humeral shaft. No fracture or loosening. The space appears in expected position. There is sclerosis and deformity of the glenoid which may be related to secondary degenerative change or sequela of previous instrumentation. There is retroversion of the glenoid. AC joint unremarkable. Deltoid and periarticular soft tissues unremarkable. Rotator cuff musculature appears intact. Visualized left lung demonstrates upper lobe scarring and/or atelectasis. IMPRESSION Status post explantation of a left shoulder arthroplasty with placement of [facility] A Service of [facility] RADIOLOGY TEXT RESULTS PATIENT: CONSUELO MCKOY LOCATION: [facility] : 62 UNIT #: [id number] AGE: [address]: Cuauhtemoc Patiño MD SEX: M ORDER DR: a methylmethacrylate spacer in expected position. There is widening of the glenoid and glenoid retroversion as well as some sclerosis and depression of the glenoid articular surface may be related to secondary degenerative change or sequela of explantation. Dictated by... Samra Malcolm M.D. THIS IS AN ELECTRONICALLY VERIFIED REPORT Samra Malcolm M.D. at 03/11/2017 7:17 AM JAIRO/qian TD: 03/10/2017 16:06 JOB #: [id number] MEDICAL IMAGING REPORT Page 1 of 1 COPY
[2017-03-10 10:33] LABS: HEMATOCRIT 42.3 % (38.0-50.0); HEMOGLOBIN 13.9 gm/dL (13.0-16.0); MEAN CELL VOLUME 85.1 FL (83-96); MEAN CORPUSCULAR HEMOGLOBIN 28.1 PG (28-34); MEAN PLATELET VOLUME 8.6 FL (6.5-11.5); RED BLOOD COUNT 4.97 X10e (3.90-5.60); RED CELL DISTRIBUTION WIDTH 16.6 % (11.0-15.5); WHITE BLOOD COUNT 5.4 X10e3 (4.0-10.5)
[2017-03-10 11:06] LABS: ALBUMIN SERUM 3.5 g/dL (3.5-5.0); BILIRUBIN,TOTAL 0.3 mg/dL (0.2-2.0); BUN/CREATININE RATIO 19.09; CALCIUM SERUM 9.2 mg/dL (8.4-10.2); CREATININE SERUM 1.1 mg/dL (0.6-1.4); GLOM FILT RATE Estimated 75.2 mL/min (>60); POTASSIUM 4.6 mmol/L (3.5-5.1); PROTEIN TOTAL SERUM 7.1 g/dL (6.0-8.3)
== END | disposition home or self-care (01) ==
LOC: CCAT 09:00
PROVIDERS: Orthopaedic Surgery
DX: Z01.818 Encounter for other preprocedural examination (principal); T84.098A Other mechanical complication of other internal joint prosthesis, initial encounter; Z96.612 Presence of left artificial shoulder joint
CPT/HCPCS: 36415; 73200; 80053; 85027; 85652; 86140

== ENCOUNTER → 2017-03-11 | Outpatient (CLI) | payer BC | END | disposition home or self-care (01) | LOC: CLAB 13:39 | DX: A49.02 Methicillin resistant Staphylococcus aureus infection, unspecified site (principal) | CPT/HCPCS: 87070 ==